=== PATIENT | male | born 1950 | race Caucasian/White ===

== ENCOUNTER 2017-04-15 11:26 | Emergency (ER) | payer OTHER ==
[~2017-04-15] VITALS: Ht 180.3 cm; Wt 145.2 kg
[2017-04-15] MEDS ORDERED: BACTRIM DS TAB1 EACH PO (14:46)
[2017-04-15 15:02] VITALS: BP 149/75
== END 2017-04-15 15:03 | disposition home or self-care (01) ==
LOC: ER 11:26
DX: L02.214 Cutaneous abscess of groin (principal); L03.314 Cellulitis of groin; F10.99 Alcohol use, unspecified with unspecified alcohol-induced disorder